=== PATIENT | female | born 1940 | race Caucasian/White ===

== ENCOUNTER 2018-11-20 09:49 | Inpatient (IN) | payer MEDICARE, MEDICAID ==
[~2018-11-20] VITALS: Ht 167.6 cm; Wt 82.8 kg
[~2018-11-20 09:49] MED LIST: AMLO2.5T2 PO; ESCI10TA PO; ESOM40CA PO; LAMO150T PO; OLAN5TAB3 PO; ROSU40TA PO; SITA100T PO; TRAZ-214 PO; VALS160T2 PO
[2018-11-20] MEDS ORDERED: TDAP [DIPH/PERTUSSIS/TET] 0.5 ML VIAL IM ONE ×2 (10:30→11:31)
[2018-11-20 10:33] LABS: BASOPHILS % (AUTO) 0.5 % (0.0-2.0); HEMATOCRIT 33 % (33-45); HEMOGLOBIN 11.4 g/dL (11.5-14.8); LYMPHOCYTES # (AUTO) 0.7 /CMM (0.8-4.8); LYMPHOCYTES % (AUTO) 13.7 % (20.0-44.0); MEAN CORPUSCULAR HGB CONC 34 g/dl (31.0-36.0); MEAN CORPUSCULAR VOLUME 92 fL (82-100); MONOCYTES # (AUTO) 0.8 /CMM (0.1-1.30); NEUTROPHILS # (AUTO) 3.5 /CMM (1.8-8.9); NEUTROPHILS % (AUTO) 67.8 % (43.0-81.0); PLATELET COUNT (AUTO) 154 /CMM (150-450); RED BLOOD CELL COUNT(AUTO) 3.62 MIL/uL (4.0-5.2); WHITE BLOOD COUNT (AUTO) 5.2 K/uL (4.3-11.0)
[2018-11-20 10:42] LABS: CALCIUM, SERUM 8.2 mg/dL (8.5-10.1); CARBON DIOXIDE 27 mmol/L (21-32); CHLORIDE 103 mmol/L (98-107); GLUCOSE 121 mg/dL (74-106); POTASSIUM 3.9 mmol/L (3.5-5.1); SODIUM SERUM 137 mmol/L (136-145); UREA NITROGEN, BLOOD 19 mg/dL (7-18)
[2018-11-20 10:47] LABS: ALANINE AMINOTRANSFERASE 32 U/L (12-78); ALBUMIN 3.6 g/dL (3.4-5.0); ALKALINE PHOSPHATASE 45 U/L (46-116); ASPARTATE AMINOTRANSFERASE 22 U/L (15-37); BILIRUBIN,DIRECT 0.1 mg/dL (0.0-0.2); BILIRUBIN,TOTAL 0.3 mg/dL (0.2-1.0); TOTAL PROTEIN, SERUM 6.5 g/dL (6.4-8.2)
[2018-11-20] MEDS ORDERED: LAMO25TA10 PO (10:48)
[2018-11-20] MEDS ORDERED: ASPI1CPM PO (10:48)
[2018-11-20] MEDS ORDERED: SITA50TA PO (10:48)
[2018-11-20] MEDS ORDERED: ACETAMINOPHEN 325 MG TABLET PO PRN (14:30)
[2018-11-20] MEDS ORDERED: HYDROCODONE/APAP 5/325MG 1 EACH TABLET PO PRN (14:30)
[2018-11-20] MEDS ORDERED: MAGNESIUM HYDROXIDE 30 ML UDC PO PRN (14:30)
[2018-11-20] MEDS ORDERED: ONDANSETRON HCL/PF 4 MG/2 ML VIAL IVP PRN (14:30)
[2018-11-20] MEDS ORDERED: MAG HYDROX/AL HYDROX/SIMETH 30 ML UDC PO PRN (14:30)
[2018-11-20] MEDS ORDERED: Z GUARD REMEDY 2 OZ OINT TP PRN (14:30)
[2018-11-20 15:25] VITALS: BP 120/53
[2018-11-20 16:00] VITALS: BP 120/53
[2018-11-20] MEDS: IV NS 0.9% 1,000 ML IV PRN (16:29)
[2018-11-20 16:31] LABS: IRON, SERUM 69 ug/dl (50-175); TOTAL IRON BINDING CAPACITY 348 ug/dl (250-450)
[2018-11-20] MEDS: ENOXAPARIN SODIUM 40 MG/0.4 ML DISP.SYRIN SQ SCH (16:35)
[2018-11-20 16:40] LABS: FERRITIN 32 ng/mL (8-388)
[2018-11-20 20:00] VITALS: BP 124/48
[2018-11-20 20:44] VITALS: BP 124/48
[2018-11-20] MEDS: ATORVASTATIN 40 MG TABLET PO SCH (21:08)
[2018-11-20] MEDS: OLANZAPINE 5 MG TABLET PO SCH (21:08)
[2018-11-20] MEDS: ZOLPIDEM TARTRATE 5 MG TABLET PO PRN (22:28)
[2018-11-21] VITALS: BP 113/52
[2018-11-21] MEDS: IV NS 0.9% 1,000 ML IV PRN (05:33)
[2018-11-21 06:00] VITALS: BP 135/55
[2018-11-21 06:49] LABS: BASOPHILS % (AUTO) 0.6 % (0.0-2.0); HEMATOCRIT 32 % (33-45); HEMOGLOBIN 10.9 g/dL (11.5-14.8); LYMPHOCYTES # (AUTO) 0.7 /CMM (0.8-4.8); LYMPHOCYTES % (AUTO) 22.5 % (20.0-44.0); MEAN CORPUSCULAR HGB CONC 34 g/dl (31.0-36.0); MEAN CORPUSCULAR VOLUME 91 fL (82-100); MONOCYTES # (AUTO) 0.6 /CMM (0.1-1.30); MONOCYTES % (AUTO) 17.5 % (2.0-12.0); NEUTROPHILS # (AUTO) 1.8 /CMM (1.8-8.9); NEUTROPHILS % (AUTO) 54.4 % (43.0-81.0); PLATELET COUNT (AUTO) 151 /CMM (150-450); WHITE BLOOD COUNT (AUTO) 3.3 K/uL (4.3-11.0)
[2018-11-21 07:16] LABS: B-TYPE NATRIURETIC PEPTIDE 181 PG/ML (0-125); CALCIUM, SERUM 8.1 mg/dL (8.5-10.1); CARBON DIOXIDE 26 mmol/L (21-32); CHLORIDE 106 mmol/L (98-107); CREATININE 0.8 mg/dL (0.6-1.3); GLUCOSE 100 mg/dL (74-106); MAGNESIUM 1.9 mg/dL (1.8-2.4); PHOSPHORUS 3.3 mg/dL (2.5-4.9); SODIUM SERUM 139 mmol/L (136-145); UREA NITROGEN, BLOOD 13 mg/dL (7-18)
[2018-11-21 07:19] LABS: CHOLESTEROL 133 mg/dL (<200); HDL CHOLESTEROL 35 mg/dL (40-60); LDL 76 mg/dL (0-99); THYROID STIMULATING HORMONE 2.783 uIU/mL (0.358-3.74); TRIGLYCERIDES 112 mg/dL (30-150)
[2018-11-21 08:00] VITALS: BP 111/60
[2018-11-21] MEDS: VALSARTAN 80 MG TABLET PO SCH (08:26)
[2018-11-21] MEDS: LamoTRIgine 25 MG TABLET PO SCH (08:26)
[2018-11-21] MEDS: AMLODIPINE BESYLATE 2.5 MG TABLET PO SCH (08:27)
[2018-11-21] MEDS: ESCITALOPRAM OXALATE (10 MG) 10 MG TABLET PO SCH (08:27)
[2018-11-21] MEDS: LINAGLIPTIN 5 MG TABLET PO SCH (08:27)
[2018-11-21] MEDS: ENOXAPARIN SODIUM 40 MG/0.4 ML DISP.SYRIN SQ SCH (08:28)
[2018-11-21] MEDS: AGGRENOX(ASA/DIPYRIDAMOLE) 1 CAP CPMP.12HR PO SCH (09:00)
[2018-11-21 12:00] VITALS: BP 135/55
[2018-11-21] MEDS: OXYBUTYNIN CHLORIDE 5 MG TABLET PO SCH ×2 (13:52→17:19)
[2018-11-21 16:00] VITALS: BP 126/61
[2018-11-21 16:59] LABS: ABG BASE EXCESS -0.1 mmol/L; ABG OXYGEN SATURATION 92.3 % (92.0-98.5); ABG PCO2 38.1 mmHg (35.0-45.0); ABG PO2 65.6 mmHg (75.0-100.0); AaDO2 38.5 mmHg; COHb 0.6 % (0.5-1.5); MetHb 0.4 % (0.0-1.5); O2Hb 91.4 % (94.0-97.0); SITE, ABG Right Radial; VENT MODE, BG ROOM AIR
[2018-11-21 20:00] VITALS: BP 118/68
[2018-11-21] MEDS: ZOLPIDEM TARTRATE 5 MG TABLET PO PRN (21:05)
[2018-11-21] MEDS: OLANZAPINE 5 MG TABLET PO SCH (21:05)
[2018-11-21] MEDS: ATORVASTATIN 40 MG TABLET PO SCH (21:05)
[2018-11-22 04:00] VITALS: BP 144/72
[2018-11-22] MEDS: PANTOPRAZOLE 40 MG TABLET.DR PO SCH (07:52)
[2018-11-22 07:58] LABS: BASOPHILS % (AUTO) 0.5 % (0.0-2.0); EOSINOPHILS % (AUTO) 4.7 % (0.0-6.0); HEMATOCRIT 32 % (33-45); HEMOGLOBIN 11.5 g/dL (11.5-14.8); LYMPHOCYTES # (AUTO) 0.5 /CMM (0.8-4.8); LYMPHOCYTES % (AUTO) 14.5 % (20.0-44.0); MEAN CORPUSCULAR HGB CONC 36 g/dl (31.0-36.0); MEAN CORPUSCULAR VOLUME 90 fL (82-100); MONOCYTES # (AUTO) 0.5 /CMM (0.1-1.30); MONOCYTES % (AUTO) 15.2 % (2.0-12.0); NEUTROPHILS # (AUTO) 2.1 /CMM (1.8-8.9); NEUTROPHILS % (AUTO) 65.1 % (43.0-81.0); PLATELET COUNT (AUTO) 151 /CMM (150-450); RED BLOOD CELL COUNT(AUTO) 3.61 MIL/uL (4.0-5.2); WHITE BLOOD COUNT (AUTO) 3.3 K/uL (4.3-11.0)
[2018-11-22 08:00] VITALS: BP_SYST 149; BP_DIAS 70; BP_DIAS 77
[2018-11-22 08:15] LABS: CALCIUM, SERUM 8.4 mg/dL (8.5-10.1); CARBON DIOXIDE 25 mmol/L (21-32); CHLORIDE 104 mmol/L (98-107); CREATININE 0.7 mg/dL (0.6-1.3); GLUCOSE 103 mg/dL (74-106); MAGNESIUM 1.8 mg/dL (1.8-2.4); PHOSPHORUS 3.3 mg/dL (2.5-4.9); SODIUM SERUM 138 mmol/L (136-145); UREA NITROGEN, BLOOD 11 mg/dL (7-18)
[2018-11-22] MEDS: ESCITALOPRAM OXALATE (10 MG) 10 MG TABLET PO SCH (08:37)
[2018-11-22] MEDS: OXYBUTYNIN CHLORIDE 5 MG TABLET PO SCH ×2 (08:37→17:07)
[2018-11-22] MEDS: VALSARTAN 80 MG TABLET PO SCH (08:38)
[2018-11-22] MEDS: LINAGLIPTIN 5 MG TABLET PO SCH (08:38)
[2018-11-22] MEDS: LamoTRIgine 25 MG TABLET PO SCH (08:38)
[2018-11-22] MEDS: AGGRENOX(ASA/DIPYRIDAMOLE) 1 CAP CPMP.12HR PO SCH (08:38)
[2018-11-22] MEDS: ENOXAPARIN SODIUM 40 MG/0.4 ML DISP.SYRIN SQ SCH (08:47)
[2018-11-22] MEDS: AMLODIPINE BESYLATE 2.5 MG TABLET PO SCH (09:00)
[2018-11-22 10:14] LABS: EOSINOPHILS % (MANUAL) 4 % (0-4); LYMPHOCYTES % (MANUAL) 13 % (16-48); MONOCYTES % (MANUAL) 13 % (0-11.0); NEUTROPHILS % (MANUAL) 70 (42-76)
[2018-11-22 12:00] VITALS: BP 124/67
[2018-11-22 16:00] VITALS: BP 126/65
[2018-11-22 20:00] VITALS: BP 109/49
[2018-11-22 20:15] VITALS: BP 109/49
[2018-11-22] MEDS: OLANZAPINE 5 MG TABLET PO SCH (21:34)
[2018-11-22] MEDS: ATORVASTATIN 40 MG TABLET PO SCH (21:34)
[2018-11-22] MEDS: ZOLPIDEM TARTRATE 5 MG TABLET PO PRN (21:35)
[2018-11-23 04:20] VITALS: BP 157/55
[2018-11-23 06:27] VITALS: BP 157/55
[2018-11-23] MEDS: PANTOPRAZOLE 40 MG TABLET.DR PO SCH (07:49)
[2018-11-23 08:00] VITALS: BP 122/75
[2018-11-23 08:22] VITALS: BP 122/75
[2018-11-23] MEDS: LamoTRIgine 25 MG TABLET PO SCH (08:42)
[2018-11-23] MEDS: LINAGLIPTIN 5 MG TABLET PO SCH (08:42)
[2018-11-23] MEDS: ESCITALOPRAM OXALATE (10 MG) 10 MG TABLET PO SCH (08:42)
[2018-11-23] MEDS: OXYBUTYNIN CHLORIDE 5 MG TABLET PO SCH ×2 (08:42→16:51)
[2018-11-23] MEDS: AMLODIPINE BESYLATE 2.5 MG TABLET PO SCH (08:42)
[2018-11-23] MEDS: VALSARTAN 80 MG TABLET PO SCH (08:42)
[2018-11-23] MEDS: ENOXAPARIN SODIUM 40 MG/0.4 ML DISP.SYRIN SQ SCH (08:43)
[2018-11-23] MEDS: AGGRENOX(ASA/DIPYRIDAMOLE) 1 CAP CPMP.12HR PO SCH (08:46)
[2018-11-23 11:51] VITALS: BP 134/55
[2018-11-23] MEDS ORDERED: MAGN400O6 PO (13:01)
[2018-11-23] MEDS ORDERED: OXYB5TAB11 PO (13:01)
[2018-11-23] MEDS ORDERED: AMLO2.5T4 PO (13:01)
[2018-11-23] MEDS ORDERED: PANT40TA2 PO (13:01)
[2018-11-23] MEDS ORDERED: ACET325T53 PO (13:01)
[2018-11-23 16:00] VITALS: BP 114/45
[2018-11-24] MEDS ORDERED: AMLODIPINE BESYLATE 2.5 MG TABLET PO SCH (21:00)
== END 2018-11-23 17:48 | DRG 563 ==
LOC: ER 09:49 → TELE1 14:19 → MEDSG1 11-21 12:15
PROVIDERS: ATTEND Registered Nurse
DX: S82.831A Other fracture of upper and lower end of right fibula, initial encounter for closed fracture (principal); J98.11 Atelectasis; N17.9 Acute kidney failure, unspecified; R55 Syncope and collapse; E78.5 Hyperlipidemia, unspecified; S09.90XA Unspecified injury of head, initial encounter; D64.9 Anemia, unspecified; R91.8 Other nonspecific abnormal finding of lung field; E11.9 Type 2 diabetes mellitus without complications; F32.9 Major depressive disorder, single episode, unspecified; W18.30XA Fall on same level, unspecified, initial encounter; Y92.89 Other specified places as the place of occurrence of the external cause; I10 Essential (primary) hypertension; M19.90 Unspecified osteoarthritis, unspecified site; G47.33 Obstructive sleep apnea (adult) (pediatric); Z68.29 Body mass index [BMI] 29.0-29.9, adult; E66.9 Obesity, unspecified; R09.02 Hypoxemia
CPT/HCPCS: 36415; 36600; 70450-TC; 71045-TC; 71250-TC; 72125-TC; 73030-TC; 73562; 73610-TC; 80048-TC; 80061-TC; 80076-TC; 82728-TC; 82803-TC; 83540-TC; 83735-TC; 83880; 84100-TC; 84443-TC; 84484-TC; 85025-TC; 85730-TC; 87081-TC; 90715; 93307-TC; 93880-TC; 97116-TC; 97530-TC; A6403; G0378; J1650; J7030

== ENCOUNTER 2025-07-07 19:22 | Emergency (ER) | payer MEDICARE, OTHER ==
[~2025-07-07] VITALS: Ht 167.6 cm; Wt 62.6 kg
[~2025-07-07 19:22] MED LIST changes: +ACET325T53 PO; -AMLO2.5T2 PO; +AMLO2.5T4 PO; +ASPI1CPM PO; -LAMO150T PO; +LAMO25TA10 PO; +MAGN400O6 PO; +OXYB5TAB16 PO; +PANT40TA2 PO; -SITA100T PO; +SITA50TA PO; -TRAZ-214 PO
[2025-07-07] MEDS: IV NS 0.9% 500 ML BAG IV ONE (20:12)
[2025-07-07 20:16] LABS: PLATELET COUNT (AUTO) 208 K/uL (150-450); RED BLOOD CELL COUNT(AUTO) 4.06 MIL/uL (4.0-5.2); RED CELL DISTRIBUTION WIDTH 14.0 % (11.5-15.0); WHITE BLOOD COUNT (AUTO) 4.7 K/uL (4.3-11.0)
[2025-07-07 20:24] LABS: APPEARANCE,URINE CLEAR (CLEAR); BLOOD, URINE NEGATIVE Ery/uL (NEGATIVE); LEUKOCYTE ESTERASE ,URINE NEGATIVE (NEGATIVE); NITRITE, URINE NEGATIVE (NEGATIVE); UGLUCOSE NEGATIVE (NEGATIVE)
[2025-07-07 20:24] LABS: CALCIUM, SERUM 8.8 mg/dL (8.5-10.1); CREATININE 1.3 mg/dL (0.6-1.3); SODIUM SERUM 140.0 mmol/L (136-145); UREA NITROGEN, BLOOD 23.0 mg/dL (7-18)
[2025-07-07 20:29] LABS: ASPARTATE AMINOTRANSFERASE 19.0 U/L (15-37); TOTAL PROTEIN, SERUM 7.5 g/dL (6.4-8.2)
[2025-07-07 20:49] LABS: ADD URINE CULTURE NO; SQUAMOUS EPITHELIAL CELL,UR 0-2 /HPF (None Seen)
[2025-07-07] MEDS ORDERED: DOCU-141 PO (21:02)
[2025-07-07] MEDS ORDERED: POLY119P PO (21:02)
[2025-07-07 21:23] VITALS: BP 128/80; TEMP 98.4; O2SAT 95
== END 2025-07-07 21:24 | disposition home or self-care (01) ==
LOC: ER 19:29
DX: K59.00 Constipation, unspecified (principal); R10.A1 Flank pain, right side; I11.9 Hypertensive heart disease without heart failure; E11.9 Type 2 diabetes mellitus without complications; M17.0 Bilateral primary osteoarthritis of knee; Z79.02 Long term (current) use of antithrombotics/antiplatelets; Z79.82 Long term (current) use of aspirin; Z79.84 Long term (current) use of oral hypoglycemic drugs; Z79.899 Other long term (current) drug therapy; Z90.49 Acquired absence of other specified parts of digestive tract
CPT/HCPCS: 99284; 74176; 85025; 80048; 83690; 80076; 81001; 36415; J7030